=== PATIENT | male | born 1940 | race African-American/Black ===

== ENCOUNTER → 2016-12-27 | Outpatient (CLI) | payer OTHER ==
--- NOTE | ~2016-12-27 | CR63 ---
[facility] A Service of [facility] RADIOLOGY TEXT RESULTS PATIENT: [id number] UNIT #: [id number] AGE: [address]: EDITH PATEL APRN SEX: M ORDER DR: [id number] [facility] [address] [place], [place] [address] [id number] O MR#: [id number] Acc #: [id number] NAME: MIRTA VALENCIA : 1940 SEX: M STUDY DATE/TIME: 12/27/2016 9:12 UNIT: [facility] ROOM: STUDY DESCRIPTION: CR Chest 2 View Attending Physician: Edith Patel R.N. Referring Physician: Edith Patel R.N. Ordering Physician: Edith Patel R.N. Primary Care Physician: Edith Patel R.N. MEDICAL IMAGING REPORT This report is preliminary unless electronic signature is present EXAM Chest, 12/27/2016 HISTORY 76-year-old male patient with history of throat cancer. Chest pain, cough and congestion past 3 months. History of high blood pressure. COMPARISON Chest, 09/14/2016 FINDINGS Two-view chest demonstrates normal heart size. Thoracic aortic ectasia is again noted and appears stable. MediPort is positioned on the right with infusion catheter tip in the lower SVC. Right lung is fully expanded and clear. The lung markings are somewhat prominent in the left lung base. This could reflect minimal pneumonia. Correlate clinically. Short-interval followup recommended. IMPRESSION Stable atherosclerotic aortic ectasia. Minimal pneumonia suspect left lung base. Correlate clinically. Dictated by... Hao Christensen M.D. THIS IS AN ELECTRONICALLY VERIFIED REPORT Hao Christensen M.D. at 12/27/2016 12:30 PM Leonardo TD: 12/27/2016 12:19 JOB #: [id number] MEDICAL IMAGING REPORT [facility] A Service of [facility] RADIOLOGY TEXT RESULTS PATIENT: MIRTA VALENCIA [id number] UNIT #: [id number] AGE: [address]: EDITH PATEL APRN SEX: M ORDER DR: Page 1 of 1 COPY
== END | disposition home or self-care (01) ==
LOC: CRAD 08:54
DX: R05 Cough (principal); I77.819 Aortic ectasia, unspecified site
CPT/HCPCS: 71020

== ENCOUNTER → 2017-04-04 | Outpatient (CLI) | payer OTHER ==
--- NOTE | ~2017-04-04 | US85 ---
[facility] A Service of [facility] RADIOLOGY TEXT RESULTS PATIENT: MIRTA VALENCIA LOCATION: [facility] : 40 UNIT #: [id number] AGE: [address]: EDITH SCOTT APRN SEX: M ORDER DR: [id number] [facility] [address] [place], [place] [address] [id number] O MR#: [id number] Acc #: [id number] NAME: MIRTA VALENCIA : 1940 SEX: M STUDY DATE/TIME: 04/04/2017 14:51 UNIT: [facility] ROOM: STUDY DESCRIPTION: [facility] [employer] Ordering Physician: Amanda Basurto MEDICAL IMAGING REPORT This report is preliminary unless electronic signature is present EXAM Right lower extremity venous duplex 04/04/2017 HISTORY Right lower extremity pain for 1 week. Right calf pain. Evaluate for deep vein thrombosis. TECHNIQUE Venous ultrasound examination of the right lower extremity was performed using grayscale, spectral Doppler and color flow Doppler imaging. FINDINGS The examination is negative. There is no evidence of right lower extremity deep venous thrombus from the groin to the lower calf. Visualized greater saphenous vein is also patent. IMPRESSION Negative examination. No evidence of right lower extremity deep venous thrombosis. Dictated by... Jos Cota M.D. THIS IS AN ELECTRONICALLY VERIFIED REPORT Jos Cota M.D. at 04/05/2017 7:27 AM KRT/pcl TD: 04/04/2017 22:31 JOB #: [id number] MEDICAL IMAGING REPORT [facility] A Service of [facility] RADIOLOGY TEXT RESULTS PATIENT: MIRTA VALENCIA LOCATION: [facility] : 40 UNIT #: [id number] AGE: [address]: EDITH SCOTT APRN SEX: M ORDER DR: Page 1 of 1 COPY
== END | disposition home or self-care (01) ==
LOC: CNIV 14:18
DX: L03.90 Cellulitis, unspecified (principal); M79.661 Pain in right lower leg; R22.41 Localized swelling, mass and lump, right lower limb
CPT/HCPCS: 93971